=== PATIENT | female | born 1940 | race Two or more races ===

== ENCOUNTER 2019-03-06 23:01 | Inpatient (IN) | payer SELFPAY ==
[~2019-03-06] VITALS: Ht 152.4 cm; Wt 51.0 kg
[2019-03-06 23:15] VITALS: BP 175/79
--- NOTE | 2019-03-06 23:15 | NUR ---
ED Nurse Note: Patient was BIBA from home due to hypoglycemia. Per patient's grandchild this is second episod for today. Patient's BS upon arrival was 160. AAOP x4, BP 187/85, ER MD aware no new orders.
[2019-03-06 23:42] LABS: APPEARANCE,URINE CLEAR; BASOPHILS % (AUTO) 0.8 % (0.0-2.0); BILIRUBIN, URINE NEGATIVE (NEGATIVE); COLOR,URINE PALE YELLOW; EOSINOPHILS % (AUTO) 2.1 % (0.0-3.0); GLUCOSE, URINE (UA) NEGATIVE (NEGATIVE); HEMATOCRIT 28.3 % (37.0-47.0); KETONES,URINE NEGATIVE (NEGATIVE); LEUKOCYTE ESTERASE ,URINE 1+ (NEGATIVE); LYMPHOCYTES % (AUTO) 17.9 % (20.0-45.0); MEAN CORPUSCULAR VOLUME 93 FL (80-99); MONOCYTES % (AUTO) 5.6 % (1.0-10.0); NEUTROPHILS % (AUTO) 73.6 % (45.0-75.0); NITRITE,URINE NEGATIVE (NEGATIVE); PH,URINE 5 (4.5-8.0); PLATELET COUNT 315 K/UL (150-450); PROTEIN,URINE 4+ (NEGATIVE); RED BLOOD COUNT 3.06 M/UL (4.20-5.40); RED CELL DISTRIBUTION WIDTH 12.2 % (11.6-14.8); UROBILINOGEN,URINE NORMAL MG/DL (0.0-1.0); WHITE BLOOD COUNT 7.2 K/UL (4.8-10.8)
--- NOTE | 2019-03-06 23:43 | Emergency Room Report ---
History of Present Illness General Chief Complaint: General Complaint Source: Patient Present Illness HPI This is an 79-year-old female who has a history of diabetes and high blood pressure. She presents with altered mental status and low blood sugar. She is visiting from [facility]. She has been taking metformin 850 mg also Januvia. Her blood sugar was running low yesterday. Her daughter stopped Januvia around 5 PM yesterday. Yesterday she was unresponsive when she woke up. She came around after glucose was given. Her blood sugars been running today. This evening she became lethargic and unresponsive. Blood glucose was running in the 30s. #1 was called when he did not improve. Initial blood glucose was 48. They gave her an amp of D50 and it rebounded to 300. She became responsive. No trauma. No fever chills but no other meds other than blood pressure medication. Not on insulin. Allergies: Coded Allergies: No Known Allergies (Unverified , 03/06/19) Patient History Past Medical History: see triage record, old chart reviewed, DM, HTN Past Surgical History: other Pertinent Family History: none Social History: Denies: smoking Last Menstrual Period: NA Now: No : 8 Para: 8 Immunizations: other Reviewed Nursing Documentation: PMH: Agreed; PSxH: Agreed Nursing Documentation-PMH Hx Hypertension: Yes Hx Diabetes: Yes Review of Systems Eye: Denies: eye pain, blurred vision ENT: Denies: ear pain, nose congestion, throat swelling Respiratory: Denies: cough, shortness of breath Cardiovascular: Denies: chest pain, palpitations Gastrointestinal: Denies: abdominal pain, diarrhea, nausea, vomiting Musculoskeletal: Denies: back pain, joint pain Skin: Denies: rash Neurological: Denies: headache, numbness Endocrine: Denies: increased thirst, increased urine Hematologic/Lymphatic: Denies: easy bruising All Other Systems: negative except mentioned in HPI Physical Exam Vital Signs Date Time Temp Pulse Resp B/P (MAP) Pulse Ox O2 Delivery O2 Flow Rate FiO2 03/06/19 22:55 98.4 97 16 175/79 (111) 96 Room Air vitals with high blood pressure Sp02 EP Interpretation: reviewed, normal General Appearance: well appearing, no apparent distress, alert Head: normocephalic, atraumatic Eyes: bilateral eye PERRL, bilateral eye EOMI ENT: hearing grossly normal, normal pharynx Neck: full range of motion, supple, no meningismus Respiratory: chest non-tender, lungs clear, normal breath sounds Cardiovascular #1: regular rate, rhythm, no murmur Gastrointestinal: normal bowel sounds, non tender, no mass, no organomegaly, no bruit, non-distended Musculoskeletal: back normal, normal range of motion, other - BKA Neurologic: alert, oriented x3 Psychiatric: mood/affect normal Skin: warm/dry Medical Decision Making Diagnostic Impression: Primary Impression: Hypoglycemia Additional Impressions: ARF (acute renal failure) Qualified Codes: N17.9 - Acute kidney failure, unspecified Anemia, chronic disease CRF (chronic renal failure) Qualified Codes: N18.5 - Chronic kidney disease, stage 5 Hypertension Qualified Codes: I10 - Essential (primary) hypertension ER Course Patient presents with altered mental status secondary to hypoglycemia. No evidence of CVA or bleed. Her hypoglycemia is probably worsened because of acute renal failure. According to family, patient has no doctor in [facility]. She is been going to the ER and buying medications from the pharmacy. There were discussion of possible peritoneal dialysis but follow-up patient was told she does not need dialysis. Acute on chronic renal failure and hypoglycemia, will admit for further work- up. I discussed the case with Dr. Gage and Bonnie for admission. Last Vital Signs Date Time Temp Pulse Resp B/P (MAP) Pulse Ox O2 Delivery O2 Flow Rate FiO2 03/06/19 22:55 98.4 97 16 175/79 (111) 96 Room Air Status: improved Disposition: ADMITTED INPATIENT Condition: Serious Referrals: NOT CHOSEN IPA/,REFERRING (PCP) Jorge Patel MD Mar 06, 2019 23:43
[2019-03-06 23:51] LABS: ANION GAP 19 mmol/L (5-15); BLOOD UREA NITROGEN 87 mg/dL (7-18); CALCIUM 8.1 MG/DL (8.5-10.1); CARBON DIOXIDE 16 MMOL/L (21-32); CHLORIDE 106 MMOL/L (98-107); CREATININE 8.2 MG/DL (0.55-1.30); SODIUM 141 MMOL/L (136-145)
[2019-03-07] VITALS (7 sets, daily range): BP systolic 152–185; BP diastolic 79–96
--- NOTE | 2019-03-07 01:40 | NUR ---
NURSE NOTES: Telephone report taken from ER, DESI Sheppard. Inpatient under Dr. Kenzie Gage
--- NOTE | 2019-03-07 02:00 | NUR ---
NURSE NOTES: Patient brought up to floor with ER transport via gurney, transferred to room bed. Speaks only Afghan. Patient is awake and alert, A&Ox4. No signs of distress on room air. No complaints of pain. IV site c/d/i and patent. Skin is loose, but intact. Patient is Lt above the knee leg amputee, needs assistance with transfers. BP is still elevated (182/96) despite administration of BP meds in ER at 0122. Contacting MD for new patient orders, awaiting return call.
--- NOTE | 2019-03-07 03:37 | NUR ---
ED Nurse Note: Patient was admited to [facility] due to renal failure, and hypoglycemia. AAO x4, BP 175/85 ER MD aware, other VSS at this time. Patient was tranfered via [employer], with all belongings.
--- NOTE | 2019-03-07 06:53 | General Progress Note ---
Assessment/Plan Problem List: (1) ARF (acute renal failure) ICD Codes: N17.9 - Acute kidney failure, unspecified SNOMED: 08765570 Qualifiers: Qualified Codes: N17.9 - Acute kidney failure, unspecified (2) Hypoglycemia ICD Codes: E16.2 - Hypoglycemia, unspecified SNOMED: 272019530 (3) Hypertension ICD Codes: I10 - Essential (primary) hypertension SNOMED: 67443869 Qualifiers: Qualified Codes: I10 - Essential (primary) hypertension (4) CRF (chronic renal failure) ICD Codes: N18.9 - Chronic kidney disease, unspecified SNOMED: 23648997 Qualifiers: Qualified Codes: N18.5 - Chronic kidney disease, stage 5 (5) Anemia, chronic disease ICD Codes: D63.8 - Anemia in other chronic diseases classified elsewhere SNOMED: 827120799 Assessment/Plan: hypoglycemia due to Metformin and Januvia in the setting of renal failure - dextrose infusion - stop all oral diabetic medications - glucose monitoring - hypoglycemia protocol - check lactic acid level - nephrology will follow for renal failure Subjective Allergies: Coded Allergies: No Known Allergies (Unverified , 03/06/19) All Systems: reviewed and negative except above Subjective This is an 79-year-old female who has a history of diabetes and high blood pressure. She presents with altered mental status and low blood sugar. She is visiting from [facility]. She has been taking metformin 850 mg also Januvia. Her blood sugar was running low yesterday. Her daughter stopped Januvia around 5 PM yesterday. Yesterday she was unresponsive when she woke up. She came around after glucose was given. Her blood sugars been running today. This evening she became lethargic and unresponsive. Blood glucose was running in the 30s. #1 was called when he did not improve. Initial blood glucose was 48. They gave her an amp of D50 and it rebounded to 300. She became responsive. No trauma. No fever chills but no other meds other than blood pressure medication. Not on insulin. Objective Last 24 Hour Vital Signs Date Time Temp Pulse Resp B/P (MAP) Pulse Ox O2 Delivery O2 Flow Rate FiO2 03/07/19 04:00 98.1 100 17 180/90 (120) 98 03/07/19 02:42 Room Air 03/07/19 02:00 99.1 102 16 182/96 (124) 98 03/07/19 01:55 98.4 16 185/85 96 Room Air 03/07/19 01:55 98.4 16 185/85 96 Room Air 03/07/19 01:22 185/85 03/07/19 00:21 91 182/85 03/06/19 23:15 97 16 Room Air 03/06/19 23:15 98.4 16 175/79 96 Room Air 03/06/19 22:55 98.4 97 16 175/79 (111) 96 Room Air Intake and Output 03/06/19 03/07/19 18:59 06:59 Intake Total 240 ml Balance 240 ml Intake Oral 240 ml # Voids 1 Laboratory Tests 03/06/19 23:30: White Blood Count 7.2, Red Blood Count 3.06L, Hemoglobin 10.0L, Hematocrit 28.3L , Mean Corpuscular Volume 93, Mean Corpuscular Hemoglobin 32.8H, Mean Corpuscular Hemoglobin Concent 35.4, Red Cell Distribution Width 12.2, Platelet Count 315, Mean Platelet Volume 5.7L, Neutrophils (%) (Auto) 73.6, Lymphocytes ( %) (Auto) 17.9L, Monocytes (%) (Auto) 5.6, Eosinophils (%) (Auto) 2.1, Basophils (%) (Auto) 0.8, Urine Color Pale yellow, Urine Appearance Clear, Urine pH 5, Urine Specific [place] 1.015, Urine Protein 4+H, Urine Glucose (UA) Negative, Urine Ketones Negative, Urine Blood 2+H, Urine Nitrite Negative, Urine Bilirubin Negative, Urine Urobilinogen Normal, Urine Leukocyte Esterase 1+ H, Urine RBC 2-4H, Urine WBC 2-4, Urine Squamous Epithelial Cells ModerateH, Urine Bacteria Few, Sodium Level 141, Potassium Level 5.0, Chloride Level 106, Carbon Dioxide Level 16L, Anion Gap 19H, Blood Urea Nitrogen 87H, Creatinine 8.2H, Estimat Glomerular Filtration Rate , Glucose Level 132H, Calcium Level 8.1L Height (Feet): 5 Height (Inches): 0.00 Weight (Pounds): 115 General Appearance: no apparent distress Neck: normal alignment Cardiovascular: normal rate Respiratory/Chest: lungs clear Abdomen: normal bowel sounds Pelvis: normal external exam Jayjay Clemons MD Mar 07, 2019 06:53
--- NOTE | 2019-03-07 06:53 | NUR ---
NURSE NOTES: No orders placed for patient as of current time. I contacted MD at patient arrival ([id number]). Followed up at 0630. Awaiting response and orders.
[2019-03-07] MEDS ORDERED: D5NS 1,000 ML IV SCH (07:00)
[2019-03-07] MEDS ORDERED: Morphine Sulfate 2mg/ml Inj(IV/IM USE ONLY) IVP PRN (07:30)
[2019-03-07] MEDS ORDERED: Zolpidem 5mg tab ORAL PRN (07:30)
[2019-03-07] MEDS ORDERED: Miralax 17gm pkt ORAL PRN (07:30)
[2019-03-07] MEDS ORDERED: LORazepam Inj 2mg/ml 1ml IV PRN (07:30)
--- NOTE | 2019-03-07 07:36 | NUR ---
HAND-OFF: Report given to DESI Marques. Patient is awake and VS stable.
--- NOTE | 2019-03-07 07:38 | NUR ---
NURSE NOTES: Daughter is at bedside. Pt awake Danish speaker. Pt admitted for hypoglycemia . Able to respond to questions appropriately. Call light is in reach.
[2019-03-07 08:11] LABS: CREATINE KINASE 36 U/L (26-308)
[2019-03-07] MEDS: Heparin 5000 units/ml inj SUBQ SCH ×2 (09:27→20:22)
[2019-03-07 10:15] LABS: BASOPHILS % (AUTO) 0.8 % (0.0-2.0); EOSINOPHILS % (AUTO) 2.6 % (0.0-3.0); HEMATOCRIT 26.3 % (37.0-47.0); HEMOGLOBIN 9.3 G/DL (12.0-16.0); LYMPHOCYTES % (AUTO) 18.6 % (20.0-45.0); MEAN CORPUSCULAR VOLUME 94 FL (80-99); PLATELET COUNT 313 K/UL (150-450); RED CELL DISTRIBUTION WIDTH 12.3 % (11.6-14.8)
[2019-03-07 10:36] LABS: APPEARANCE,URINE CLEAR; BILIRUBIN, URINE NEGATIVE (NEGATIVE); COLOR,URINE PALE YELLOW; GLUCOSE, URINE (UA) NEGATIVE (NEGATIVE); KETONES,URINE NEGATIVE (NEGATIVE); LEUKOCYTE ESTERASE ,URINE NEGATIVE (NEGATIVE); NITRITE,URINE NEGATIVE (NEGATIVE); PH,URINE 5 (4.5-8.0); PROTEIN,URINE 4+ (NEGATIVE); UROBILINOGEN,URINE NORMAL MG/DL (0.0-1.0)
--- NOTE | 2019-03-07 10:38 | Diagnostic Imaging Report ---
Indication: Altered mental status Technique: Contiguous 5 mm thick transaxial imaging of the head obtained in a Siemens Sensation [address] scanner. Soft tissue and bone windows generated. Automatic Exposure Control was utilized. Total Dose length Product (DLP): 1326.[address] Dose Index Volume (CTDIvol): 70.38 mGy Comparison: none Findings: There is moderate prominence of the ventricles, basal cisterns, and cerebral sulci consistent with atrophy. Moderate, nonspecific, white matter hypoattenuation is noted throughout the brain consistent with chronic small vessel disease. There is no midline shift, edema, acute hemorrhage, mass effect, or abnormal extra-axial fluid collections. Bones are unremarkable. Impression: No acute intracranial bleed, mass effect or edema. Moderate atrophy of the brain. Evidence of chronic small vessel disease involving white matter tracts. The CT scanner at [facility] is accredited by the [employer] and the scans are performed using dose optimization techniques as appropriate to a performed exam including Automatic Exposure control.
[2019-03-07 10:55] LABS: ALANINE AMINOTRANSFERASE 12 U/L (12-78); ALBUMIN 2.6 G/DL (3.4-5.0); ALBUMIN/GLOBULIN RATIO 0.6 (1.0-2.7); ALKALINE PHOSPHATASE 81 U/L (46-116); ANION GAP 19 mmol/L (5-15); ASPARTATE AMINO TRANSFERASE 16 U/L (15-37); BILIRUBIN,TOTAL 0.3 MG/DL (0.2-1.0); BLOOD UREA NITROGEN 85 mg/dL (7-18); CALCIUM 7.7 MG/DL (8.5-10.1); CARBON DIOXIDE 14 MMOL/L (21-32); CHLORIDE 108 MMOL/L (98-107); CHOLESTEROL 178 MG/DL (< 200); CREATININE 8.2 MG/DL (0.55-1.30); GAMMA GLUTAMYL TRANSPEPTIDASE 17 U/L (5-85); HDL CHOLESTEROL 78 MG/DL (40-60); PHOSPHORUS 6.2 MG/DL (2.5-4.9); POTASSIUM 5.4 MMOL/L (3.5-5.1); SODIUM 141 MMOL/L (136-145); TRIGLYCERIDES 124 MG/DL (30-150)
[2019-03-07] MEDS ORDERED: NovoLOG Insulin Flexpen SUBQ SCH ×2 (11:30)
--- NOTE | 2019-03-07 11:33 | NUR ---
CASE MANAGEMENT:REVIEW 79 YR OLD FEMALE FROM HOME TO ER CC: HYPOGLYCEMIC WITH BS 48 SI: ACUTE RENAL FAILURE. HYPOGLYCEMIA 98.5 97 16 182/85 96% ON RA H/H-10.0/28.3 GLUCOSE+132-->56 BUN+87 CR+8.2 IS: IV D50 IV HYDRALAZINE IVF@75/HR NORVASC PO CT HEAD : TO MED/SURG STATUS 3 [facility]
--- NOTE | 2019-03-07 12:08 | Diagnostic Imaging Report ---
Indication:Elevated Bun and Creatinine. Technique: Grayscale and duplex Doppler imaging of the kidneys performed. Comparison: None Findings: The size, contour, and echogenicity of both kidneys are within normal limits. There is no hydronephrosis. The IVC and urinary bladder are unremarkable. Right kidney 10.8 cm in length. Left kidney 10.4 cm in length. IMPRESSION: Negative exam
--- NOTE | 2019-03-07 12:17 | Cardiac Electrophysiology PN ---
Subjective Subjective [id number] Objective Last 24 Hour Vital Signs Date Time Temp Pulse Resp B/P (MAP) Pulse Ox O2 Delivery O2 Flow Rate FiO2 03/07/19 09:00 Room Air 03/07/19 08:00 98.2 95 17 170/85 (113) 03/07/19 04:00 98.1 100 17 180/90 (120) 98 03/07/19 02:42 Room Air 03/07/19 02:00 99.1 102 16 182/96 (124) 98 03/07/19 01:55 98.4 16 185/85 96 Room Air 03/07/19 01:55 98.4 16 185/85 96 Room Air 03/07/19 01:22 185/85 03/07/19 00:21 91 182/85 03/06/19 23:15 97 16 Room Air 03/06/19 23:15 98.4 16 175/79 96 Room Air 03/06/19 22:55 98.4 97 16 175/79 (111) 96 Room Air Intake and Output 03/06/19 03/07/19 19:00 07:00 Intake Total 240 ml Balance 240 ml Intake Oral 240 ml # Voids 1 Laboratory Tests Test 03/06/19 23:30 03/07/19 07:31 03/07/19 07:37 03/07/19 10:23 White Blood Count 7.2 K/UL (4.8-10.8) 8.0 K/UL (4.8-10.8) Red Blood Count 3.06 M/UL (4.20-5.40) L 2.80 M/UL (4.20-5.40) L Hemoglobin 10.0 G/DL (12.0-16.0) L 9.3 G/DL (12.0-16.0) L Hematocrit 28.3 % (37.0-47.0) L 26.3 % (37.0-47.0) L Mean Corpuscular Volume 93 FL (80-99) 94 FL (80-99) Mean Corpuscular Hemoglobin 32.8 PG (27.0-31.0) H 33.2 PG (27.0-31.0) H Mean Corpuscular Hemoglobin Concent 35.4 G/DL (32.0-36.0) 35.3 G/DL (32.0-36.0) Red Cell Distribution Width 12.2 % (11.6-14.8) 12.3 % (11.6-14.8) Platelet Count 315 K/UL (150-450) 313 K/UL (150-450) Mean Platelet Volume 5.7 FL (6.5-10.1) L 5.4 FL (6.5-10.1) L Neutrophils (%) (Auto) 73.6 % (45.0-75.0) 72.0 % (45.0-75.0) Lymphocytes (%) (Auto) 17.9 % (20.0-45.0) L 18.6 % (20.0-45.0) L Monocytes (%) (Auto) 5.6 % (1.0-10.0) 6.0 % (1.0-10.0) Eosinophils (%) (Auto) 2.1 % (0.0-3.0) 2.6 % (0.0-3.0) Basophils (%) (Auto) 0.8 % (0.0-2.0) 0.8 % (0.0-2.0) Urine Color Pale yellow Pale yellow Urine Appearance Clear Clear Urine pH 5 (4.5-8.0) 5 (4.5-8.0) Urine Specific [place] 1.015 (1.005-1.035) 1.010 (1.005-1.035) Urine Protein 4+ (NEGATIVE) H 4+ (NEGATIVE) H Urine Glucose (UA) Negative (NEGATIVE) Negative (NEGATIVE) Urine Ketones Negative (NEGATIVE) Negative (NEGATIVE) Urine Blood 2+ (NEGATIVE) H 2+ (NEGATIVE) H Urine Nitrite Negative (NEGATIVE) Negative (NEGATIVE) Urine Bilirubin Negative (NEGATIVE) Negative (NEGATIVE) Urine Urobilinogen Normal MG/DL (0.0-1.0) Normal MG/DL (0.0-1.0) Urine Leukocyte Esterase 1+ (NEGATIVE) H Negative (NEGATIVE) Urine RBC 2-4 /HPF (0 - 2) H 2-4 /HPF (0 - 2) H Urine WBC 2-4 /HPF (0 - 2) 0-2 /HPF (0 - 2) Urine Squamous Epithelial Cells Moderate /LPF (NONE/OCC) H Occasional /LPF Urine Bacteria Few /HPF (NONE) Few /HPF (NONE) Sodium Level 141 MMOL/L (136-145) 141 MMOL/L (136-145) Potassium Level 5.0 MMOL/L (3.5-5.1) 5.4 MMOL/L (3.5-5.1) H Chloride Level 106 MMOL/L (98-107) 108 MMOL/L (98-107) H Carbon Dioxide Level 16 MMOL/L (21-32) L 14 MMOL/L (21-32) L Anion Gap 19 mmol/L (5-15) H 19 mmol/L (5-15) H Blood Urea Nitrogen 87 mg/dL (7-18) H 85 mg/dL (7-18) H Creatinine 8.2 MG/DL (0.55-1.30) H 8.2 MG/DL (0.55-1.30) H Estimat Glomerular Filtration Rate mL/min (>60) mL/min (>60) Glucose Level 132 MG/DL (74-106) H 56 MG/DL (74-106) L Calcium Level 8.1 MG/DL (8.5-10.1) L 7.7 MG/DL (8.5-10.1) L Hemoglobin A1c 5.7 % (4.3-6.0) Uric Acid 6.4 MG/DL (2.6-7.2) Phosphorus Level 6.2 MG/DL (2.5-4.9) H Magnesium Level 1.2 MG/DL (1.8-2.4) L Total Bilirubin 0.3 MG/DL (0.2-1.0) Gamma Glutamyl Transpeptidase 17 U/L (5-85) Aspartate Amino Transf (AST/SGOT) 16 U/L (15-37) Alanine Aminotransferase (ALT/SGPT) 12 U/L (12-78) Alkaline Phosphatase 81 U/L (46-116) Total Creatine Kinase 36 U/L (26-308) C-Reactive Protein, Quantitative 1.5 mg/dL (0.00-0.90) H Pro-B-Type Natriuretic Peptide > 19233 pg/mL (0-125) H Total Protein 7.1 G/DL (6.4-8.2) Albumin 2.6 G/DL (3.4-5.0) L Globulin 4.5 g/dL Albumin/Globulin Ratio 0.6 (1.0-2.7) L Triglycerides Level 124 MG/DL (30-150) Cholesterol Level 178 MG/DL (< 200) LDL Cholesterol 83 mg/dL (<100) HDL Cholesterol 78 MG/DL (40-60) H Cholesterol/HDL Ratio 2.3 (3.3-4.4) L Thyroid Stimulating Hormone (TSH) 1.519 uiU/mL (0.358-3.740) Urine Amorphous Sediment Moderate /LPF (NONE) H Urine Random Sodium 57 mmol/L (20-110) Ryan Cash MD Mar 07, 2019 12:17
[2019-03-07] MEDS ORDERED: Sodium Polystyrene Sulfonate 15gm Powder ORAL SCH (13:30)
--- NOTE | 2019-03-07 14:20 | Consultation ---
History of Present Illness General Date patient seen: Mar 07, 2019 Chief Complaint: General Complaint Present Illness HPI 79-year-old female with a history of diabetes and high blood pressure. She presents with altered mental status and low blood sugar. Her blood glucose was running in the 30s. Paramedics gave her an amp of D50 and it rebounded to 300. She became responsive. No trauma. Allergies: Coded Allergies: No Known Allergies (Unverified , 03/06/19) Patient History Healthcare decision maker Resuscitation status Full Code Advanced Directive on File Past Medical/Surgical History Past Medical/Surgical History: (1) Diabetes mellitus (2) Hypertension Physical Exam General Appearance: WD/WN, no apparent distress Lines, tubes and drains: peripheral HEENT: normocephalic, atraumatic Neck: non-tender, normal alignment Respiratory/Chest: chest wall non-tender, normal breath sounds Breasts: no masses Cardiovascular/Chest: normal peripheral pulses, normal rate Abdomen: normal bowel sounds Genitourinary/Rectal: normal genital exam Last 24 Hour Vital Signs Date Time Temp Pulse Resp B/P (MAP) Pulse Ox O2 Delivery O2 Flow Rate FiO2 03/07/19 12:00 98.8 88 19 162/79 (106) 03/07/19 09:00 Room Air 03/07/19 08:00 98.2 95 17 170/85 (113) 03/07/19 04:00 98.1 100 17 180/90 (120) 98 03/07/19 02:42 Room Air 03/07/19 02:00 99.1 102 16 182/96 (124) 98 03/07/19 01:55 98.4 16 185/85 96 Room Air 03/07/19 01:55 98.4 16 185/85 96 Room Air 03/07/19 01:22 185/85 03/07/19 00:21 91 182/85 03/06/19 23:15 97 16 Room Air 03/06/19 23:15 98.4 16 175/79 96 Room Air 03/06/19 22:55 98.4 97 16 175/79 (111) 96 Room Air Intake and Output 03/06/19 03/07/19 19:00 07:00 Intake Total 240 ml Balance 240 ml Intake Oral 240 ml # Voids 1 Laboratory Tests Test 03/06/19 23:30 03/07/19 07:31 03/07/19 07:37 03/07/19 10:23 White Blood Count 7.2 K/UL (4.8-10.8) 8.0 K/UL (4.8-10.8) Red Blood Count 3.06 M/UL (4.20-5.40) L 2.80 M/UL (4.20-5.40) L Hemoglobin 10.0 G/DL (12.0-16.0) L 9.3 G/DL (12.0-16.0) L Hematocrit 28.3 % (37.0-47.0) L 26.3 % (37.0-47.0) L Mean Corpuscular Volume 93 FL (80-99) 94 FL (80-99) Mean Corpuscular Hemoglobin 32.8 PG (27.0-31.0) H 33.2 PG (27.0-31.0) H Mean Corpuscular Hemoglobin Concent 35.4 G/DL (32.0-36.0) 35.3 G/DL (32.0-36.0) Red Cell Distribution Width 12.2 % (11.6-14.8) 12.3 % (11.6-14.8) Platelet Count 315 K/UL (150-450) 313 K/UL (150-450) Mean Platelet Volume 5.7 FL (6.5-10.1) L 5.4 FL (6.5-10.1) L Neutrophils (%) (Auto) 73.6 % (45.0-75.0) 72.0 % (45.0-75.0) Lymphocytes (%) (Auto) 17.9 % (20.0-45.0) L 18.6 % (20.0-45.0) L Monocytes (%) (Auto) 5.6 % (1.0-10.0) 6.0 % (1.0-10.0) Eosinophils (%) (Auto) 2.1 % (0.0-3.0) 2.6 % (0.0-3.0) Basophils (%) (Auto) 0.8 % (0.0-2.0) 0.8 % (0.0-2.0) Urine Color Pale yellow Pale yellow Urine Appearance Clear Clear Urine pH 5 (4.5-8.0) 5 (4.5-8.0) Urine Specific [place] 1.015 (1.005-1.035) 1.010 (1.005-1.035) Urine Protein 4+ (NEGATIVE) H 4+ (NEGATIVE) H Urine Glucose (UA) Negative (NEGATIVE) Negative (NEGATIVE) Urine Ketones Negative (NEGATIVE) Negative (NEGATIVE) Urine Blood 2+ (NEGATIVE) H 2+ (NEGATIVE) H Urine Nitrite Negative (NEGATIVE) Negative (NEGATIVE) Urine Bilirubin Negative (NEGATIVE) Negative (NEGATIVE) Urine Urobilinogen Normal MG/DL (0.0-1.0) Normal MG/DL (0.0-1.0) Urine Leukocyte Esterase 1+ (NEGATIVE) H Negative (NEGATIVE) Urine RBC 2-4 /HPF (0 - 2) H 2-4 /HPF (0 - 2) H Urine WBC 2-4 /HPF (0 - 2) 0-2 /HPF (0 - 2) Urine Squamous Epithelial Cells Moderate /LPF (NONE/OCC) H Occasional /LPF Urine Bacteria Few /HPF (NONE) Few /HPF (NONE) Sodium Level 141 MMOL/L (136-145) 141 MMOL/L (136-145) Potassium Level 5.0 MMOL/L (3.5-5.1) 5.4 MMOL/L (3.5-5.1) H Chloride Level 106 MMOL/L (98-107) 108 MMOL/L (98-107) H Carbon Dioxide Level 16 MMOL/L (21-32) L 14 MMOL/L (21-32) L Anion Gap 19 mmol/L (5-15) H 19 mmol/L (5-15) H Blood Urea Nitrogen 87 mg/dL (7-18) H 85 mg/dL (7-18) H Creatinine 8.2 MG/DL (0.55-1.30) H 8.2 MG/DL (0.55-1.30) H Estimat Glomerular Filtration Rate mL/min (>60) mL/min (>60) Glucose Level 132 MG/DL (74-106) H 56 MG/DL (74-106) L Calcium Level 8.1 MG/DL (8.5-10.1) L 7.7 MG/DL (8.5-10.1) L Hemoglobin A1c 5.7 % (4.3-6.0) Uric Acid 6.4 MG/DL (2.6-7.2) Phosphorus Level 6.2 MG/DL (2.5-4.9) H Magnesium Level 1.2 MG/DL (1.8-2.4) L Total Bilirubin 0.3 MG/DL (0.2-1.0) Gamma Glutamyl Transpeptidase 17 U/L (5-85) Aspartate Amino Transf (AST/SGOT) 16 U/L (15-37) Alanine Aminotransferase (ALT/SGPT) 12 U/L (12-78) Alkaline Phosphatase 81 U/L (46-116) Total Creatine Kinase 36 U/L (26-308) C-Reactive Protein, Quantitative 1.5 mg/dL (0.00-0.90) H Pro-B-Type Natriuretic Peptide > 73799 pg/mL (0-125) H Total Protein 7.1 G/DL (6.4-8.2) Albumin 2.6 G/DL (3.4-5.0) L Globulin 4.5 g/dL Albumin/Globulin Ratio 0.6 (1.0-2.7) L Triglycerides Level 124 MG/DL (30-150) Cholesterol Level 178 MG/DL (< 200) LDL Cholesterol 83 mg/dL (<100) HDL Cholesterol 78 MG/DL (40-60) H Cholesterol/HDL Ratio 2.3 (3.3-4.4) L Thyroid Stimulating Hormone (TSH) 1.519 uiU/mL (0.358-3.740) Urine Amorphous Sediment Moderate /LPF (NONE) H Urine Random Sodium 57 mmol/L (20-110) Height (Feet): 5 Height (Inches): 0.00 Weight (Pounds): 115 Medications Current Medications Medications (Trade) Dose Ordered Sig/[place] Route PRN Reason Start Time Stop Time Status Last Admin Dose Admin Acetaminophen (Tylenol) 650 mg Q4H PRN ORAL fever 03/07/19 07:30 04/06/19 07:29 Amlodipine Besylate (Norvasc) 10 mg DAILY ORAL 03/08/19 09:00 04/07/19 08:59 Clonidine HCl (Catapres Tab) 0.1 mg Q4H PRN ORAL sbp>170mmHg 03/07/19 12:30 04/06/19 12:29 Dextrose (Dextrose 50%) 25 ml Q30M PRN IV Hypoglycemia 03/07/19 07:00 04/06/19 06:59 Dextrose (Dextrose 50%) 50 ml Q30M PRN IV Hypoglycemia 03/07/19 07:00 04/06/19 06:59 Dextrose/Sodium Chloride 1,000 ml @ 50 mls/hr Q20H IV 03/07/19 13:45 04/06/19 13:44 Docusate Sodium (Colace) 100 mg THREE TIMES A DAY ORAL 03/07/19 18:00 04/06/19 17:59 Heparin Sodium (Porcine) (Heparin 5000 units/ml) 5,000 units EVERY 12 HOURS SUBQ 03/07/19 09:00 04/06/19 08:59 03/07/19 09:27 Lorazepam (Ativan 2mg/ml 1ml) 0.5 mg Q4H PRN IV For Anxiety 03/07/19 07:30 03/14/19 07:29 Magnesium Sulfate 100 ml @ 100 mls/hr Q1H IVPB 03/07/19 13:30 03/07/19 15:29 Ondansetron HCl (Zofran) 4 mg Q6H PRN IVP Nausea & Vomiting 03/07/19 07:30 04/06/19 07:29 Pantoprazole (Protonix) 40 mg BID ORAL 03/07/19 18:00 04/06/19 13:29 Polyethylene Glycol (Miralax) 17 gm HSPRN PRN ORAL Constipation 03/07/19 07:30 04/06/19 07:29 Sevelamer Carbonate (Renvela) 1,600 mg THREE TIMES A DAY ORAL 03/07/19 18:00 04/06/19 17:59 Sodium Polystyrene Sulfonate (Kayexalate) 45 gm ONCE ORAL 03/07/19 13:30 03/07/19 14:30 Sodium Citrate (Bicitra) 30 ml EVERY 6 HOURS ORAL 03/07/19 18:00 04/06/19 17:59 Zolpidem Tartrate (Ambien) 5 mg HSPRN PRN ORAL Insomnia 03/07/19 07:30 03/14/19 07:29 Assessment/Plan Problem List: (1) Acute metabolic encephalopathy due to hypoglycemia ICD Codes: G93.41 - Metabolic encephalopathy; E16.2 - Hypoglycemia, unspecified SNOMED: 85432487, 351550638 (2) Acute on chronic renal insufficiency ICD Codes: N28.9 - Disorder of kidney and ureter, unspecified; N18.9 - Chronic kidney disease, unspecified SNOMED: 475530993, 526049894 (3) Hypoglycemia ICD Codes: E16.2 - Hypoglycemia, unspecified SNOMED: 010881839 (4) Anemia, chronic disease ICD Codes: D63.8 - Anemia in other chronic diseases classified elsewhere SNOMED: 200450885 (5) Diabetes mellitus ICD Codes: E11.9 - Type 2 diabetes mellitus without complications SNOMED: 16483127 (6) Hypertension ICD Codes: I10 - Essential (primary) hypertension SNOMED: 41828169 Qualifiers: Qualified Codes: I10 - Essential (primary) hypertension Assessment/Plan: hold metformin iv fluids sliding scale diabetic diet renal studies Misty Nicole MD Mar 07, 2019 14:20
--- NOTE | 2019-03-07 14:56 | Consultation ---
History of Present Illness General Date patient seen: Mar 07, 2019 Chief Complaint: General Complaint Present Illness HPI 79 y/o F with hx of Dm2, HTN, CKD presented to ED on 03/06 with altered mental stautus, low blood sugar. BG as low as in the 30s; she was unresponsive and became responsive after amp of D50 No trauma, f/c. Allergies: Coded Allergies: No Known Allergies (Unverified , 03/06/19) Patient History Healthcare decision maker Resuscitation status Full Code Advanced Directive on File Patient History Narrative Pmhx: as above Shx: reviewed Fhx: non contributory Review of Systems All Other Systems: negative except mentioned in HPI Physical Exam Physical Exam Narrative General Appearance: WD/WN, no apparent distress Lines, tubes and drains: peripheral HEENT: normocephalic, atraumatic Neck: non-tender, normal alignment Respiratory/Chest: chest wall non-tender, normal breath sounds Breasts: no masses Cardiovascular/Chest: normal peripheral pulses, normal rate Abdomen: normal bowel sounds Genitourinary/Rectal: normal genital exam Last 24 Hour Vital Signs Date Time Temp Pulse Resp B/P (MAP) Pulse Ox O2 Delivery O2 Flow Rate FiO2 03/07/19 12:00 98.8 88 19 162/79 (106) 03/07/19 09:00 Room Air 03/07/19 08:00 98.2 95 17 170/85 (113) 03/07/19 04:00 98.1 100 17 180/90 (120) 98 03/07/19 02:42 Room Air 03/07/19 02:00 99.1 102 16 182/96 (124) 98 03/07/19 01:55 98.4 16 185/85 96 Room Air 03/07/19 01:55 98.4 16 185/85 96 Room Air 03/07/19 01:22 185/85 03/07/19 00:21 91 182/85 03/06/19 23:15 97 16 Room Air 03/06/19 23:15 98.4 16 175/79 96 Room Air 03/06/19 22:55 98.4 97 16 175/79 (111) 96 Room Air Intake and Output 03/06/19 03/07/19 19:00 07:00 Intake Total 240 ml Balance 240 ml Intake Oral 240 ml # Voids 1 Laboratory Tests Test 03/06/19 23:30 03/07/19 07:31 03/07/19 07:37 03/07/19 10:23 White Blood Count 7.2 K/UL (4.8-10.8) 8.0 K/UL (4.8-10.8) Red Blood Count 3.06 M/UL (4.20-5.40) L 2.80 M/UL (4.20-5.40) L Hemoglobin 10.0 G/DL (12.0-16.0) L 9.3 G/DL (12.0-16.0) L Hematocrit 28.3 % (37.0-47.0) L 26.3 % (37.0-47.0) L Mean Corpuscular Volume 93 FL (80-99) 94 FL (80-99) Mean Corpuscular Hemoglobin 32.8 PG (27.0-31.0) H 33.2 PG (27.0-31.0) H Mean Corpuscular Hemoglobin Concent 35.4 G/DL (32.0-36.0) 35.3 G/DL (32.0-36.0) Red Cell Distribution Width 12.2 % (11.6-14.8) 12.3 % (11.6-14.8) Platelet Count 315 K/UL (150-450) 313 K/UL (150-450) Mean Platelet Volume 5.7 FL (6.5-10.1) L 5.4 FL (6.5-10.1) L Neutrophils (%) (Auto) 73.6 % (45.0-75.0) 72.0 % (45.0-75.0) Lymphocytes (%) (Auto) 17.9 % (20.0-45.0) L 18.6 % (20.0-45.0) L Monocytes (%) (Auto) 5.6 % (1.0-10.0) 6.0 % (1.0-10.0) Eosinophils (%) (Auto) 2.1 % (0.0-3.0) 2.6 % (0.0-3.0) Basophils (%) (Auto) 0.8 % (0.0-2.0) 0.8 % (0.0-2.0) Urine Color Pale yellow Pale yellow Urine Appearance Clear Clear Urine pH 5 (4.5-8.0) 5 (4.5-8.0) Urine Specific [place] 1.015 (1.005-1.035) 1.010 (1.005-1.035) Urine Protein 4+ (NEGATIVE) H 4+ (NEGATIVE) H Urine Glucose (UA) Negative (NEGATIVE) Negative (NEGATIVE) Urine Ketones Negative (NEGATIVE) Negative (NEGATIVE) Urine Blood 2+ (NEGATIVE) H 2+ (NEGATIVE) H Urine Nitrite Negative (NEGATIVE) Negative (NEGATIVE) Urine Bilirubin Negative (NEGATIVE) Negative (NEGATIVE) Urine Urobilinogen Normal MG/DL (0.0-1.0) Normal MG/DL (0.0-1.0) Urine Leukocyte Esterase 1+ (NEGATIVE) H Negative (NEGATIVE) Urine RBC 2-4 /HPF (0 - 2) H 2-4 /HPF (0 - 2) H Urine WBC 2-4 /HPF (0 - 2) 0-2 /HPF (0 - 2) Urine Squamous Epithelial Cells Moderate /LPF (NONE/OCC) H Occasional /LPF Urine Bacteria Few /HPF (NONE) Few /HPF (NONE) Sodium Level 141 MMOL/L (136-145) 141 MMOL/L (136-145) Potassium Level 5.0 MMOL/L (3.5-5.1) 5.4 MMOL/L (3.5-5.1) H Chloride Level 106 MMOL/L (98-107) 108 MMOL/L (98-107) H Carbon Dioxide Level 16 MMOL/L (21-32) L 14 MMOL/L (21-32) L Anion Gap 19 mmol/L (5-15) H 19 mmol/L (5-15) H Blood Urea Nitrogen 87 mg/dL (7-18) H 85 mg/dL (7-18) H Creatinine 8.2 MG/DL (0.55-1.30) H 8.2 MG/DL (0.55-1.30) H Estimat Glomerular Filtration Rate mL/min (>60) mL/min (>60) Glucose Level 132 MG/DL (74-106) H 56 MG/DL (74-106) L Calcium Level 8.1 MG/DL (8.5-10.1) L 7.7 MG/DL (8.5-10.1) L Hemoglobin A1c 5.7 % (4.3-6.0) Uric Acid 6.4 MG/DL (2.6-7.2) Phosphorus Level 6.2 MG/DL (2.5-4.9) H Magnesium Level 1.2 MG/DL (1.8-2.4) L Total Bilirubin 0.3 MG/DL (0.2-1.0) Gamma Glutamyl Transpeptidase 17 U/L (5-85) Aspartate Amino Transf (AST/SGOT) 16 U/L (15-37) Alanine Aminotransferase (ALT/SGPT) 12 U/L (12-78) Alkaline Phosphatase 81 U/L (46-116) Total Creatine Kinase 36 U/L (26-308) C-Reactive Protein, Quantitative 1.5 mg/dL (0.00-0.90) H Pro-B-Type Natriuretic Peptide > 73582 pg/mL (0-125) H Total Protein 7.1 G/DL (6.4-8.2) Albumin 2.6 G/DL (3.4-5.0) L Globulin 4.5 g/dL Albumin/Globulin Ratio 0.6 (1.0-2.7) L Triglycerides Level 124 MG/DL (30-150) Cholesterol Level 178 MG/DL (< 200) LDL Cholesterol 83 mg/dL (<100) HDL Cholesterol 78 MG/DL (40-60) H Cholesterol/HDL Ratio 2.3 (3.3-4.4) L Thyroid Stimulating Hormone (TSH) 1.519 uiU/mL (0.358-3.740) Urine Amorphous Sediment Moderate /LPF (NONE) H Urine Random Sodium 57 mmol/L (20-110) Height (Feet): 5 Height (Inches): 0.00 Weight (Pounds): 115 Medications Current Medications Medications (Trade) Dose Ordered Sig/Sebas Route PRN Reason Start Time Stop Time Status Last Admin Dose Admin Acetaminophen (Tylenol) 650 mg Q4H PRN ORAL fever 03/07/19 07:30 04/06/19 07:29 Amlodipine Besylate (Norvasc) 10 mg DAILY ORAL 03/08/19 09:00 04/07/19 08:59 Clonidine HCl (Catapres Tab) 0.1 mg Q4H PRN ORAL sbp>170mmHg 03/07/19 12:30 04/06/19 12:29 Dextrose (Dextrose 50%) 25 ml Q30M PRN IV Hypoglycemia 03/07/19 07:00 04/06/19 06:59 Dextrose (Dextrose 50%) 50 ml Q30M PRN IV Hypoglycemia 03/07/19 07:00 04/06/19 06:59 Dextrose/Sodium Chloride 1,000 ml @ 50 mls/hr Q20H IV 03/07/19 13:45 04/06/19 13:44 Docusate Sodium (Colace) 100 mg THREE TIMES A DAY ORAL 03/07/19 18:00 04/06/19 17:59 Heparin Sodium (Porcine) (Heparin 5000 units/ml) 5,000 units EVERY 12 HOURS SUBQ 03/07/19 09:00 04/06/19 08:59 03/07/19 09:27 Lorazepam (Ativan 2mg/ml 1ml) 0.5 mg Q4H PRN IV For Anxiety 03/07/19 07:30 03/14/19 07:29 Magnesium Sulfate 100 ml @ 100 mls/hr Q1H IVPB 03/07/19 13:30 03/07/19 15:29 03/07/19 14:25 Ondansetron HCl (Zofran) 4 mg Q6H PRN IVP Nausea & Vomiting 03/07/19 07:30 04/06/19 07:29 Pantoprazole (Protonix) 40 mg BID ORAL 03/07/19 18:00 04/06/19 13:29 Polyethylene Glycol (Miralax) 17 gm HSPRN PRN ORAL Constipation 03/07/19 07:30 04/06/19 07:29 Sevelamer Carbonate (Renvela) 1,600 mg THREE TIMES A DAY ORAL 03/07/19 18:00 04/06/19 17:59 Sodium Citrate (Bicitra) 30 ml EVERY 6 HOURS ORAL 03/07/19 18:00 04/06/19 17:59 Zolpidem Tartrate (Ambien) 5 mg HSPRN PRN ORAL Insomnia 03/07/19 07:30 03/14/19 07:29 Assessment/Plan Assessment/Plan: Abx: None Assessment: Acute encephalopathy 2ry to hypoglycemia- No evidence of infectious process at present -CT head: No acute intracranial bleed, mass effect or edema. Moderate atrophy of the brain. Evidence of chronic small vessel disease involving white matter tracts. Afebrile No leukocytosis ARIE on CKD Dm2 HTN Plan: -Continue to monitor off abx -f/u cx -Monitor CBC/CMP, temperatures -Pat sarmiento Thank you for this consultation. Will continue to follow along with you. Discussed with DESI. Giovana Corral M.D. Mar 07, 2019 14:56
--- NOTE | 2019-03-07 15:05 | Consultation ---
Consult Note Consult Note asked to eval for renal failure his is an 79-year-old female who has a history of diabetes and high blood pressure. She presents with altered mental status and low blood sugar. She is visiting from [facility]. She has been taking metformin 850 mg also Januvia. Her blood sugar was running low yesterday. Her daughter stopped Januvia around 5 PM yesterday. Yesterday she was unresponsive when she woke up. She came around after glucose was given. Her blood sugars been running today. This evening she became lethargic and unresponsive. Blood glucose was running in the 30s. #1 was called when he did not improve. Initial blood glucose was 48. They gave her an amp of D50 and it rebounded to 300. She became responsive. No trauma. No fever chills but no other meds other than blood pressure medication. Not on insulin. No Known Allergies (Unverified , 03/06/19) : 8 Para: 8 Hx Hypertension: Yes Hx Diabetes: Yes excamined data reviewed . Assessment/Plan Renal failure- likely Chronic with superimposed Acute - Acute metabolic encephalopathy due to hypoglycemia -Hypoglycemia -Anemia, chronic disease -Diabetes mellitus -Hypertension Renal Diet Kayexelate as needed Adjust BP meds Urine studies Phos binders 2D echo Kidney CARMEN monitor renal parameters avoid nephrotoxics per orders Lloyd Jimenez MD Mar 07, 2019 15:05
--- NOTE | 2019-03-07 15:14 | NUR ---
NURSE NOTES: pt has family member at the bedside. Refused lunch informed of risk of low blood sugar 2 to refusal of meals. FC in place and patent. Urine specimen taken to given to lab. Pt seen by Dr Palmer new orders given. Dr Jimenez seen pt. Pt breathing room air. Is cooperating with medication regimen. Pt referred to Charla for information on supplental insurance
[2019-03-07] MEDS: HydrALAZINE 25mg tab ORAL SCH ×3 (15:59→23:52)
[2019-03-07] MEDS: D5NS 1,000 ML IV SCH (16:03)
--- NOTE | 2019-03-07 16:30 | Consultation ---
DATE OF CONSULTATION: 03/07/2019 CARDIOLOGY CONSULTATION CONSULTING PHYSICIAN: Ryan Cash M.D. REFERRING PHYSICIAN: Perez Gage D.O. REASON FOR CONSULTATION: Accelerated hypertension. HISTORY OF PRESENT ILLNESS: The patient is an 79-year-old lady with history of hypertension and diabetes, who was visiting [facility], was taking metformin 850 mg with Januvia. The patient was felt to be unresponsive and blood sugar was checked by daughter, it was 30s. The paramedics were called and received an amp of D50, rebounded to 300, and became responsive. Her blood pressure in the ER was as high as 182/96 and Cardiology consultation was obtained for further blood pressure management. REVIEW OF SYSTEMS: Negative other than what is mentioned in the history of present illness. PAST MEDICAL HISTORY: As mentioned above. FAMILY HISTORY: Noncontributory. SOCIAL HISTORY: She lives with family. Does not smoke or drink alcohol. PHYSICAL EXAMINATION: VITAL SIGNS: Blood pressure is 117/85, pulse 95, respirations 18, temperature 98.2. HEAD AND NECK: Showed no JVD. LUNGS: Clear. CARDIOVASCULAR: Regular S1 and S2 with no gallop or murmur. ABDOMEN: Soft. EXTREMITIES: No pitting edema. LABORATORY DATA: Her labs show white count 8, hemoglobin 9.7, hematocrit 26.3, platelet count 313. Sodium 141, potassium is 5.4, BUN of 85, creatinine of 8.2, and glucose of 56. BNP is more than 35,000. ASSESSMENT AND PLAN: 1. Accelerated hypertension. The patient has renal failure with BUN of 85, creatinine of 8.2. Avoid NICO inhibitor and angiotensin-receptor blockers. I will start the patient on Norvasc 5 mg b.i.d. and add p.r.n. clonidine to her medical regimen. 2. Hypoglycemia and uncontrolled diabetes. Further evaluation by Dr. Clemons. 3. Renal failure. Nephrology consultation is pending. 4. Hyperkalemia due to renal failure. Thank you very much for allowing me to participate in the care of this patient. Please do not hesitate to contact for any questions regarding my evaluation. Ryan Cash M.D. DR: THO JOB#: [id number] CC:
--- NOTE | 2019-03-07 17:00 | History and Physical Report ---
DATE OF ADMISSION: 03/07/2019 CONSULTANTS: 1. Jayjay Clemons M.D. 2. Misty Nicole M.D. 3. Lloyd Jimenez M.D. CHIEF COMPLAINT: Hypoglycemia, diabetes, acute renal failure, weakness, and lethargy. BRIEF HISTORY: This is an 79-year-old female, visiting from [facility] apparently had episode where he has become lethargic. Sugar was tested at 36. The patient came to [facility], diagnosed with the above, and admitted to medical floor for further treatment. Currently, calm in bed, feeling little better, no complaint. REVIEW OF SYSTEMS: No chest pain. No shortness of breath. No nausea, vomiting, or diarrhea. PAST MEDICAL HISTORY: Includes diabetes, hypertension, and acute renal failure. PAST SURGICAL HISTORY: Hip replacement and left leg AKA. MEDICATIONS: Include insulin, heparin, morphine, polyethylene glycol, zolpidem, and amlodipine. ALLERGIES: Denies. SOCIAL HISTORY: No smoking. No alcohol. No intravenous drug abuse. FAMILY HISTORY: Noncontributory. PHYSICAL EXAMINATION: GENERAL: Calm in bed, oriented x1, in no acute distress. VITAL SIGNS: Temperature is 98 degrees, pulse 100, respirations 17, and blood pressure 180/90. CARDIOVASCULAR: No murmurs. LUNGS: Distant and clear. ABDOMEN: Bowel sounds positive. Nontender. Nondistended. EXTREMITIES: No cyanosis, clubbing, or edema. NEUROLOGIC: The patient moves all extremities, slightly weak. LABORATORY AND DIAGNOSTIC DATA: Labs, at this time, show hemoglobin and hematocrit 9.3 and 26. Otherwise, CBC is normal. BMP shows potassium 5.4, chloride 108, BUN and creatinine are 85 and 8.2 . BNP is greater than 3500. Albumin 2.6. Urinalysis, 2+ blood, otherwise normal. A 1+ leukocyte esterase. ASSESSMENT: 1. Diabetes. 2. Hypoglycemia. 3. Urinary tract infection. 4. Acute renal failure. 5. Hypertension. 6. Anemia. 7. Malnutrition. PLAN: 1. PT and dietary evaluation. 2. CBC and BMP in the morning. 3. Resume home medications. 4. Blood sugar control. 5. Antibiotics per Infectious Disease. 6. Blood pressure control. 7. Cardiology followup. Perez Gage D.O. DR: CAR JOB#: [id number] CC:
[2019-03-07] MEDS: Docusate 100mg cap ORAL SCH (18:12)
[2019-03-07] MEDS: Sodium Citrate 30ml ORAL SCH ×2 (18:12→23:51)
--- NOTE | 2019-03-07 19:48 | NUR ---
NURSE NOTES: RECEIVED PATIENT RESTING IN BED, NO COMPLAINTS OF PAIN AT THIS TIME. DAUGHTER AT BEDSIDE. FALL PRECAUTIONS IN PLACE: CALL LIGHT, BESIDE TABLE AND COMMODE WITHIN REACH, BED IN LOW POSITION AND BED ALARM ON. 24 HR URINE COLLECTION STARTED AT 1920 03/07/19. PLAN OF CARE REVIEWED.
--- NOTE | 2019-03-07 19:50 | NUR ---
NURSE NOTES: Pt in stable condition repositioned sleeping at this time. Daughter is at bedside. Urine specimen taken to lab.
[2019-03-08] VITALS: BP 161/98
[2019-03-08 04:00] VITALS: BP 158/74
[2019-03-08] MEDS: HydrALAZINE 25mg tab ORAL SCH (05:38)
[2019-03-08] MEDS: Sodium Citrate 30ml ORAL SCH ×2 (05:38→12:05)
[2019-03-08 06:27] LABS: BASOPHILS % (AUTO) 1.1 % (0.0-2.0); HEMATOCRIT 24.7 % (37.0-47.0); HEMOGLOBIN 8.4 G/DL (12.0-16.0); LYMPHOCYTES % (AUTO) 27.6 % (20.0-45.0); MEAN CORPUSCULAR VOLUME 95 FL (80-99); MONOCYTES % (AUTO) 6.8 % (1.0-10.0); NEUTROPHILS % (AUTO) 60.5 % (45.0-75.0); PLATELET COUNT 281 K/UL (150-450); RED BLOOD COUNT 2.62 M/UL (4.20-5.40); RED CELL DISTRIBUTION WIDTH 12.2 % (11.6-14.8); WHITE BLOOD COUNT 6.4 K/UL (4.8-10.8)
[2019-03-08 06:32] LABS: ALANINE AMINOTRANSFERASE 7 U/L (12-78); ALBUMIN 2.2 G/DL (3.4-5.0); ALBUMIN/GLOBULIN RATIO 0.6 (1.0-2.7); ALKALINE PHOSPHATASE 64 U/L (46-116); ANION GAP 15 mmol/L (5-15); ASPARTATE AMINO TRANSFERASE 16 U/L (15-37); BILIRUBIN,TOTAL 0.3 MG/DL (0.2-1.0); BLOOD UREA NITROGEN 77 mg/dL (7-18); CARBON DIOXIDE 17 MMOL/L (21-32); CHLORIDE 106 MMOL/L (98-107); CREATININE 7.9 MG/DL (0.55-1.30); POTASSIUM 4.2 MMOL/L (3.5-5.1); SODIUM 138 MMOL/L (136-145)
--- NOTE | 2019-03-08 06:42 | General Progress Note ---
Assessment/Plan Problem List: (1) ARF (acute renal failure) ICD Codes: N17.9 - Acute kidney failure, unspecified SNOMED: 17194679 Qualifiers: Qualified Codes: N17.9 - Acute kidney failure, unspecified (2) Hypoglycemia ICD Codes: E16.2 - Hypoglycemia, unspecified SNOMED: 653026270 (3) Hypertension ICD Codes: I10 - Essential (primary) hypertension SNOMED: 33577387 Qualifiers: Qualified Codes: I10 - Essential (primary) hypertension (4) CRF (chronic renal failure) ICD Codes: N18.9 - Chronic kidney disease, unspecified SNOMED: 57009219 Qualifiers: Qualified Codes: N18.5 - Chronic kidney disease, stage 5 (5) Anemia, chronic disease ICD Codes: D63.8 - Anemia in other chronic diseases classified elsewhere SNOMED: 549873616 Assessment/Plan: hypoglycemia due to Metformin and Januvia in the setting of renal failure - continue dextrose infusion - glucose monitoring - hypoglycemia protocol Subjective Allergies: Coded Allergies: No Known Allergies (Unverified , 03/06/19) All Systems: reviewed and negative except above Subjective events noted Item Value Date Time Bedside Blood Glucose 75 mg/dl 03/08/19 0619 Bedside Blood Glucose 105 mg/dl 03/07/19 2135 Bedside Blood Glucose 127 mg/dl H 03/07/19 1630 Bedside Blood Glucose 95 mg/dl 03/07/19 1130 Objective Last 24 Hour Vital Signs Date Time Temp Pulse Resp B/P (MAP) Pulse Ox O2 Delivery O2 Flow Rate FiO2 03/08/19 05:38 158/74 03/08/19 04:00 98.3 77 17 158/74 (102) 98 03/08/19 00:00 98.4 92 19 161/98 (119) 96 03/07/19 23:52 161/98 03/07/19 21:00 Room Air 03/07/19 20:20 185/94 03/07/19 20:00 98.5 96 20 185/94 (124) 97 03/07/19 17:43 130/69 03/07/19 16:00 98.9 92 18 152/81 (104) 97 03/07/19 15:59 158/78 03/07/19 12:00 98.8 88 19 162/79 (106) 03/07/19 09:00 Room Air 03/07/19 08:00 98.2 95 17 170/85 (113) Intake and Output 03/07/19 03/08/19 18:59 06:59 Intake Total 655 ml 840 ml Output Total 600 ml Balance 655 ml 240 ml Intake Oral 480 ml 240 ml IV Total 175 ml 600 ml Output Urine Total 600 ml # Voids 2 1 # Bowel Movements 1 2 Laboratory Tests 03/07/19 07:31: White Blood Count 8.0, Red Blood Count 2.80L, Hemoglobin 9.3L, Hematocrit 26.3L , Mean Corpuscular Volume 94, Mean Corpuscular Hemoglobin 33.2H, Mean Corpuscular Hemoglobin Concent 35.3, Red Cell Distribution Width 12.3, Platelet Count 313, Mean Platelet Volume 5.4L, Neutrophils (%) (Auto) 72.0, Lymphocytes ( %) (Auto) 18.6L, Monocytes (%) (Auto) 6.0, Eosinophils (%) (Auto) 2.6, Basophils (%) (Auto) 0.8 03/07/19 07:37: Sodium Level 141, Potassium Level 5.4H, Chloride Level 108H, Carbon Dioxide Level 14L, Anion Gap 19H, Blood Urea Nitrogen 85H, Creatinine 8.2H, Estimat Glomerular Filtration Rate , Glucose Level 56L, Hemoglobin A1c 5.7, Uric Acid 6.4, Calcium Level 7.7L, Phosphorus Level 6.2H, Magnesium Level 1.2L, Total Bilirubin 0.3, Gamma Glutamyl Transpeptidase 17, Aspartate Amino Transf (AST/ SGOT) 16, Alanine Aminotransferase (ALT/SGPT) 12, Alkaline Phosphatase 81, Total Creatine Kinase 36, C-Reactive Protein, Quantitative 1.5H, Pro-B-Type Natriuretic Peptide > 53285D, Total Protein 7.1, Albumin 2.6L, Globulin 4.5, Albumin/Globulin Ratio 0.6L, Triglycerides Level 124, Cholesterol Level 178, LDL Cholesterol 83, HDL Cholesterol 78H, Cholesterol/HDL Ratio 2.3L, Thyroid Stimulating Hormone (TSH) 1.519 03/07/19 10:23: Urine Color Pale yellow, Urine Appearance Clear, Urine pH 5, Urine Specific [place] 1.010, Urine Protein 4+H, Urine Glucose (UA) Negative, Urine Ketones Negative, Urine Blood 2+H, Urine Nitrite Negative, Urine Bilirubin Negative, Urine Urobilinogen Normal, Urine Leukocyte Esterase Negative, Urine RBC 2-4H, Urine WBC 0-2, Urine Squamous Epithelial Cells Occasional, Urine Amorphous Sediment ModerateH, Urine Bacteria Few, Urine Random Sodium 57 03/07/19 18:45: Urine Random Sodium 38, Urine Eosinophils None seen 03/08/19 04:45: White Blood Count 6.4, Red Blood Count 2.62L, Hemoglobin 8.4L, Hematocrit 24.7L , Mean Corpuscular Volume 95, Mean Corpuscular Hemoglobin 32.1H, Mean Corpuscular Hemoglobin Concent 33.9, Red Cell Distribution Width 12.2, Platelet Count 281, Mean Platelet Volume 5.8L, Neutrophils (%) (Auto) 60.5, Lymphocytes ( %) (Auto) 27.6, Monocytes (%) (Auto) 6.8, Eosinophils (%) (Auto) 4.0H, Basophils (%) (Auto) 1.1, Sodium Level 138, Potassium Level 4.2, Chloride Level 106, Carbon Dioxide Level 17L, Anion Gap 15, Blood Urea Nitrogen 77H, Creatinine 7.9H, Estimat Glomerular Filtration Rate , Glucose Level 74, Uric Acid [Pending], Calcium Level 7.0L, Phosphorus Level [Pending], Magnesium Level [Pending], Iron Level [Pending], Unsaturated Iron Binding [Pending], Ferritin [ Pending], Total Bilirubin 0.3, Aspartate Amino Transf (AST/SGOT) 16, Alanine Aminotransferase (ALT/SGPT) 7L, Alkaline Phosphatase 64, Total Protein 5.9L, Albumin 2.2L, Globulin 3.7, Albumin/Globulin Ratio 0.6L, Vitamin B12 Level [ Pending], Folate [Pending] 03/08/19 05:30: Urine Eosinophils [Pending] Height (Feet): 5 Height (Inches): 0.00 Weight (Pounds): 112 General Appearance: no apparent distress Neck: normal alignment Cardiovascular: normal rate Respiratory/Chest: decreased breath sounds Abdomen: normal bowel sounds Pelvis: normal external exam Objective Current Medications Medications (Trade) Dose Ordered Sig/Sebas Route PRN Reason Start Time Stop Time Status Last Admin Dose Admin Acetaminophen (Tylenol) 650 mg Q4H PRN ORAL fever 03/07/19 07:30 04/06/19 07:29 Amlodipine Besylate (Norvasc) 10 mg DAILY ORAL 03/08/19 09:00 04/07/19 08:59 Clonidine HCl (Catapres Tab) 0.1 mg Q4H PRN ORAL sbp>170mmHg 03/07/19 12:30 04/06/19 12:29 03/07/19 20:20 Dextrose (Dextrose 50%) 25 ml Q30M PRN IV Hypoglycemia 03/07/19 07:00 04/06/19 06:59 Dextrose (Dextrose 50%) 50 ml Q30M PRN IV Hypoglycemia 03/07/19 07:00 04/06/19 06:59 Dextrose/Sodium Chloride 1,000 ml @ 50 mls/hr Q20H IV 03/07/19 13:45 04/06/19 13:44 03/07/19 16:03 Docusate Sodium (Colace) 100 mg THREE TIMES A DAY ORAL 03/07/19 18:00 04/06/19 17:59 03/07/19 18:12 Heparin Sodium (Porcine) (Heparin 5000 units/ml) 5,000 units EVERY 12 HOURS SUBQ 03/07/19 09:00 04/06/19 08:59 03/07/19 20:22 Hydralazine HCl (Apresoline) 25 mg Q6HR ORAL 03/07/19 15:00 04/06/19 14:59 03/08/19 05:38 Lorazepam (Ativan 2mg/ml 1ml) 0.5 mg Q4H PRN IV For Anxiety 03/07/19 07:30 03/14/19 07:29 Ondansetron HCl (Zofran) 4 mg Q6H PRN IVP Nausea & Vomiting 03/07/19 07:30 04/06/19 07:29 Pantoprazole (Protonix) 40 mg BID ORAL 03/07/19 18:00 04/06/19 13:29 03/07/19 18:11 Polyethylene Glycol (Miralax) 17 gm HSPRN PRN ORAL Constipation 03/07/19 07:30 04/06/19 07:29 Sevelamer Carbonate (Renvela) 1,600 mg THREE TIMES A DAY ORAL 03/07/19 18:00 04/06/19 17:59 03/07/19 18:12 Sodium Citrate (Bicitra) 30 ml EVERY 6 HOURS ORAL 03/07/19 18:00 7/25/19 17:59 03/08/19 05:38 Zolpidem Tartrate (Ambien) 5 mg HSPRN PRN ORAL Insomnia 03/07/19 07:30 03/14/19 07:29 Jayjay Clemons MD Mar 08, 2019 06:42
[2019-03-08 06:49] LABS: PHOSPHORUS 6.2 MG/DL (2.5-4.9)
[2019-03-08 07:01] LABS: % IRON SATURATION 33 % (15-50); IRON 60 ug/dL (50-175); TOTAL IRON BINDING CAPACITY 183 ug/dL (250-450)
--- NOTE | 2019-03-08 07:47 | NUR ---
HAND-OFF: Report given to Kenzie HEIN RN. PATIENT EATING BREAKFAST, NO SIGNS OF DISTRESS NOTED. DAUGHTER AT BEDSIDE.
[2019-03-08 08:00] VITALS: BP 160/73
--- NOTE | 2019-03-08 08:00 | NUR ---
NURSE NOTES: Received report from Jody WEEKS. Patient is awake alert and oriented x4, no acute distress noted, family at bedside. Reporting no pain at this time. IVF running per order, IV intact and asymptomatic. Updated patient and family on plan of care for the day. Fall precautions maintained. Side rails upx3, bed low and locked, call light in reach. Will continue to monitor.
--- NOTE | 2019-03-08 08:03 | NUR ---
RADIOLOGY: PCXR completed 0800 hrs. NF
[2019-03-08] MEDS: Docusate 100mg cap ORAL SCH (09:32)
[2019-03-08] MEDS: Heparin 5000 units/ml inj SUBQ SCH (09:33)
[2019-03-08] MEDS: D5NS 1,000 ML IV SCH (10:12)
--- NOTE | 2019-03-08 10:25 | Nephrology Progress Note ---
Assessment/Plan Problem List: (1) CRF (chronic renal failure) (2) Hypertension (3) Anemia, chronic disease Assessment Renal failure- likely Chronic with superimposed Acute - Acute metabolic encephalopathy due to hypoglycemia -Hypoglycemia -Anemia, chronic disease -Diabetes mellitus -Hypertension Plan Renal Diet Kayexelate as needed Adjust BP meds Urine studies Phos binders 2D echo noted Kidney CARMEN noted monitor renal parameters avoid nephrotoxics per orders no urgent intervention is needed Subjective ROS Limited/Unobtainable: No Objective Objective Last 24 Hour Vital Signs Date Time Temp Pulse Resp B/P (MAP) Pulse Ox O2 Delivery O2 Flow Rate FiO2 03/08/19 09:32 83 160/73 03/08/19 08:00 98.2 83 17 160/73 (102) 98 03/08/19 05:38 158/74 03/08/19 04:00 98.3 77 17 158/74 (102) 98 03/08/19 00:00 98.4 92 19 161/98 (119) 96 03/07/19 23:52 161/98 03/07/19 21:00 Room Air 03/07/19 20:20 185/94 03/07/19 20:00 98.5 96 20 185/94 (124) 97 03/07/19 17:43 130/69 03/07/19 16:00 98.9 92 18 152/81 (104) 97 03/07/19 15:59 158/78 03/07/19 12:00 98.8 88 19 162/79 (106) Intake and Output 03/07/19 03/08/19 18:59 06:59 Intake Total 655 ml 840 ml Output Total 600 ml Balance 655 ml 240 ml Intake Oral 480 ml 240 ml IV Total 175 ml 600 ml Output Urine Total 600 ml # Voids 2 1 # Bowel Movements 1 2 Current Medications Medications (Trade) Dose Ordered Sig/[place] Route PRN Reason Start Time Stop Time Status Last Admin Dose Admin Acetaminophen (Tylenol) 650 mg Q4H PRN ORAL fever 03/07/19 07:30 04/06/19 07:29 Amlodipine Besylate (Norvasc) 10 mg DAILY ORAL 03/08/19 09:00 04/07/19 08:59 03/08/19 09:32 Clonidine HCl (Catapres Tab) 0.1 mg Q4H PRN ORAL sbp>170mmHg 03/07/19 12:30 04/06/19 12:29 03/07/19 20:20 Cyanocobalamin (Vitamin B12) 1,000 mcg ONCE ONCE IM 03/08/19 10:30 03/08/19 10:31 UNV Dextrose (Dextrose 50%) 25 ml Q30M PRN IV Hypoglycemia 03/07/19 07:00 04/06/19 06:59 Dextrose (Dextrose 50%) 50 ml Q30M PRN IV Hypoglycemia 03/07/19 07:00 04/06/19 06:59 Dextrose/Sodium Chloride 1,000 ml @ 50 mls/hr Q20H IV 03/07/19 13:45 04/06/19 13:44 03/08/19 10:12 Docusate Sodium (Colace) 100 mg THREE TIMES A DAY ORAL 03/07/19 18:00 04/06/19 17:59 03/08/19 09:32 Heparin Sodium (Porcine) (Heparin 5000 units/ml) 5,000 units EVERY 12 HOURS SUBQ 03/07/19 09:00 04/06/19 08:59 03/08/19 09:33 Hydralazine HCl (Apresoline) 25 mg Q6HR ORAL 03/07/19 15:00 04/06/19 14:59 03/08/19 05:38 Lorazepam (Ativan 2mg/ml 1ml) 0.5 mg Q4H PRN IV For Anxiety 03/07/19 07:30 03/14/19 07:29 Ondansetron HCl (Zofran) 4 mg Q6H PRN IVP Nausea & Vomiting 03/07/19 07:30 04/06/19 07:29 Pantoprazole (Protonix) 40 mg BID ORAL 03/07/19 18:00 04/06/19 13:29 03/08/19 09:32 Polyethylene Glycol (Miralax) 17 gm HSPRN PRN ORAL Constipation 03/07/19 07:30 04/06/19 07:29 Sevelamer Carbonate (Renvela) 1,600 mg THREE TIMES A DAY ORAL 03/07/19 18:00 04/06/19 17:59 03/08/19 09:32 Sodium Citrate (Bicitra) 30 ml EVERY 6 HOURS ORAL 03/07/19 18:00 04/06/19 17:59 03/08/19 05:38 Zolpidem Tartrate (Ambien) 5 mg HSPRN PRN ORAL Insomnia 03/07/19 07:30 03/14/19 07:29 Laboratory Tests 03/07/19 18:45: Urine Eosinophils None seen, Urine Random Sodium 38 03/08/19 04:45: White Blood Count 6.4, Red Blood Count 2.62L, Hemoglobin 8.4L, Hematocrit 24.7L , Mean Corpuscular Volume 95, Mean Corpuscular Hemoglobin 32.1H, Mean Corpuscular Hemoglobin Concent 33.9, Red Cell Distribution Width 12.2, Platelet Count 281, Mean Platelet Volume 5.8L, Neutrophils (%) (Auto) 60.5, Lymphocytes ( %) (Auto) 27.6, Monocytes (%) (Auto) 6.8, Eosinophils (%) (Auto) 4.0H, Basophils (%) (Auto) 1.1, Sodium Level 138, Potassium Level 4.2, Chloride Level 106, Carbon Dioxide Level 17L, Anion Gap 15, Blood Urea Nitrogen 77H, Creatinine 7.9H, Estimat Glomerular Filtration Rate , Glucose Level 74, Uric Acid 5.8, Calcium Level 7.0L, Phosphorus Level 6.2H, Magnesium Level 1.8, Iron Level 60, Total Iron Binding Capacity 183L, Percent Iron Saturation 33, Unsaturated Iron Binding 123, Ferritin 321, Total Bilirubin 0.3, Aspartate Amino Transf (AST/SGOT) 16, Alanine Aminotransferase (ALT/SGPT) 7L, Alkaline Phosphatase 64, Total Protein 5.9L, Albumin 2.2L, Globulin 3.7, Albumin/ Globulin Ratio 0.6L, Vitamin B12 Level 236, Folate 13.3 03/08/19 05:30: Urine Eosinophils None seen Height (Feet): 5 Height (Inches): 0.00 Weight (Pounds): 112 General Appearance: no apparent distress Cardiovascular: normal rate Respiratory/Chest: lungs clear Abdomen: soft Lloyd Jimenez MD Mar 08, 2019 10:25
[2019-03-08] MEDS ORDERED: Vitamin B12 1000mcg/ml Inj IM ONE (10:30)
--- NOTE | 2019-03-08 10:46 | NUR ---
CASE MANAGEMENT:REVIEW 03/08/19 SI: AC/CHR RENAL FAILURE. HYPOGLYCEMIA 98.2 83 17 160/73 98% ON RA H/H-8.4/24.7 BUN+77 CR+7.9 IS: IVF@50/HR EPOETIN SQ MWF HYDRALAZINE PO Q8HRS NORVASC PO QD BICITRA PO Q6HRS PROTONIX PO BID HEPARIN SQ Q12 : MED/SURG STATUS 3 [facility]: PATIENT IS VISITING FROM [facility]
--- NOTE | 2019-03-08 11:12 | NUR ---
NURSE NOTES: Received order from Dr. Nicole to discontinue argueta catheter now. MD aware that patient is still under 24 hour urine collection, MD ordered to discontinue 24 hour urine collection and that Dr. Jimenez is aware.
[2019-03-08] MEDS ORDERED: NORVASC10 MG ORAL (11:13)
[2019-03-08] MEDS ORDERED: BICITRA30 ML ORAL (11:13)
[2019-03-08] MEDS ORDERED: APRESOLINE50 MG ORAL (11:13)
[2019-03-08] MEDS ORDERED: PANTOPRAZOLE SO40 MG ORAL (11:13)
[2019-03-08] MEDS ORDERED: RENVELA800 MG ORAL (11:13)
--- NOTE | 2019-03-08 11:14 | NUR ---
P.T Note: P.T evaluation completed and tx initiated. Please refer to P.T evaluation for current functional status. Pt is alert, Ox 4 , pleasant and cooperative. Daughter present in the room for translation. Pt denied c/o pain but reports generalized weakness and mild dizziness. Vitals taken and were stable. Pt currently require MIN A x 1 for bed mobility , transfers and gait/ambulation with FWW. Skilled P.T service is warranted to improve her strength and endurance to increase her mobility independence and return to PLOF. Pt would benefit from home P.T at [place].
--- NOTE | 2019-03-08 11:50 | NUR ---
NURSE NOTES: Otero catheter removed per MD order. Patient tolerated well. Educated patient and family at bedside to notify RN when ready to void.
[2019-03-08 12:00] VITALS: BP 171/85
--- NOTE | 2019-03-08 12:30 | Diagnostic Imaging Report ---
Indication: Dyspnea Comparison: None A single view chest radiograph was obtained. Findings: Borderline cardiomegaly noted. The lungs are clear. Pulmonary vascularity is appropriate. The diaphragmatic contour is smooth and costophrenic angles are sharp. No pleural effusions are identified. The bones are osteopenic. Impression: No acute findings
--- NOTE | 2019-03-08 13:30 | Cardiac Electrophysiology PN ---
Assessment/Plan Assessment/Plan 1. Accelerated hypertension. The patient has renal failure with BUN of 85, creatinine of 8.2. Avoid NICO inhibitor and angiotensin-receptor blockers. On Norvasc 10 mg daily, Hydralazine 50 q8. EF 55% 2. Hypoglycemia and uncontrolled diabetes. Further evaluation by Dr. Clemons. 3. Renal failure. FU Dr Jimenez 4. Hyperkalemia due to renal failure. DW RN and family Subjective Subjective No CP or SOB. DC planning in progress Objective Last 24 Hour Vital Signs Date Time Temp Pulse Resp B/P (MAP) Pulse Ox O2 Delivery O2 Flow Rate FiO2 03/08/19 13:20 171/85 03/08/19 12:00 97.9 84 18 171/85 (113) 03/08/19 09:32 83 160/73 03/08/19 09:00 Room Air 03/08/19 08:00 98.2 83 17 160/73 (102) 98 03/08/19 05:38 158/74 03/08/19 04:00 98.3 77 17 158/74 (102) 98 03/08/19 00:00 98.4 92 19 161/98 (119) 96 03/07/19 23:52 161/98 03/07/19 21:00 Room Air 03/07/19 20:20 185/94 03/07/19 20:00 98.5 96 20 185/94 (124) 97 03/07/19 17:43 130/69 03/07/19 16:00 98.9 92 18 152/81 (104) 97 03/07/19 15:59 158/78 Intake and Output 03/07/19 03/08/19 19:00 07:00 Intake Total 705 ml 840 ml Output Total 600 ml Balance 705 ml 240 ml Intake Oral 480 ml 240 ml IV Total 225 ml 600 ml Output Urine Total 600 ml # Voids 2 1 # Bowel Movements 1 2 Laboratory Tests Test 03/07/19 18:45 03/08/19 04:45 03/08/19 05:30 Urine Eosinophils None seen (NONE SEEN) None seen (NONE SEEN) Urine Random Sodium 38 mmol/L (20-110) White Blood Count 6.4 K/UL (4.8-10.8) Red Blood Count 2.62 M/UL (4.20-5.40) L Hemoglobin 8.4 G/DL (12.0-16.0) L Hematocrit 24.7 % (37.0-47.0) L Mean Corpuscular Volume 95 FL (80-99) Mean Corpuscular Hemoglobin 32.1 PG (27.0-31.0) H Mean Corpuscular Hemoglobin Concent 33.9 G/DL (32.0-36.0) Red Cell Distribution Width 12.2 % (11.6-14.8) Platelet Count 281 K/UL (150-450) Mean Platelet Volume 5.8 FL (6.5-10.1) L Neutrophils (%) (Auto) 60.5 % (45.0-75.0) Lymphocytes (%) (Auto) 27.6 % (20.0-45.0) Monocytes (%) (Auto) 6.8 % (1.0-10.0) Eosinophils (%) (Auto) 4.0 % (0.0-3.0) H Basophils (%) (Auto) 1.1 % (0.0-2.0) Sodium Level 138 MMOL/L (136-145) Potassium Level 4.2 MMOL/L (3.5-5.1) Chloride Level 106 MMOL/L (98-107) Carbon Dioxide Level 17 MMOL/L (21-32) L Anion Gap 15 mmol/L (5-15) Blood Urea Nitrogen 77 mg/dL (7-18) H Creatinine 7.9 MG/DL (0.55-1.30) H Estimat Glomerular Filtration Rate mL/min (>60) Glucose Level 74 MG/DL (74-106) Uric Acid 5.8 MG/DL (2.6-7.2) Calcium Level 7.0 MG/DL (8.5-10.1) L Phosphorus Level 6.2 MG/DL (2.5-4.9) H Magnesium Level 1.8 MG/DL (1.8-2.4) Iron Level 60 ug/dL (50-175) Total Iron Binding Capacity 183 ug/dL (250-450) L Percent Iron Saturation 33 % (15-50) Unsaturated Iron Binding 123 ug/dL (112-346) Ferritin 321 NG/ML (8-388) Total Bilirubin 0.3 MG/DL (0.2-1.0) Aspartate Amino Transf (AST/SGOT) 16 U/L (15-37) Alanine Aminotransferase (ALT/SGPT) 7 U/L (12-78) L Alkaline Phosphatase 64 U/L (46-116) Total Protein 5.9 G/DL (6.4-8.2) L Albumin 2.2 G/DL (3.4-5.0) L Globulin 3.7 g/dL Albumin/Globulin Ratio 0.6 (1.0-2.7) L Vitamin B12 Level 236 PG/ML (193-986) Folate 13.3 NG/ML (8.6-58.9) Objective HEAD AND NECK: Showed no JVD. LUNGS: Clear. CARDIOVASCULAR: Regular S1 and S2 with no gallop or murmur. ABDOMEN: Soft. EXTREMITIES: No pitting edema. Ryan Cash MD Mar 08, 2019 13:30
[2019-03-08] MEDS ORDERED: HydrALAZINE 50mg tab ORAL SCH (14:00)
--- NOTE | 2019-03-08 14:33 | General Progress Note ---
Assessment/Plan Problem List: (1) ARF (acute renal failure) ICD Codes: N17.9 - Acute kidney failure, unspecified SNOMED: 66677283 Qualifiers: Qualified Codes: N17.9 - Acute kidney failure, unspecified (2) Hypertension ICD Codes: I10 - Essential (primary) hypertension SNOMED: 46886594 Qualifiers: Qualified Codes: I10 - Essential (primary) hypertension (3) Anemia, chronic disease ICD Codes: D63.8 - Anemia in other chronic diseases classified elsewhere SNOMED: 164426623 (4) Hypoglycemia ICD Codes: E16.2 - Hypoglycemia, unspecified SNOMED: 025582512 (5) Acute on chronic renal insufficiency ICD Codes: N28.9 - Disorder of kidney and ureter, unspecified; N18.9 - Chronic kidney disease, unspecified SNOMED: 059984320, 344613210 (6) Diabetes mellitus ICD Codes: E11.9 - Type 2 diabetes mellitus without complications SNOMED: 43016111 Status: stable, progressing Assessment/Plan: diet bs control dc plan Subjective Constitutional: Reports: weakness Allergies: Coded Allergies: No Known Allergies (Unverified , 03/06/19) All Systems: reviewed and negative except above Subjective sitting calm Objective Last 24 Hour Vital Signs Date Time Temp Pulse Resp B/P (MAP) Pulse Ox O2 Delivery O2 Flow Rate FiO2 03/08/19 13:20 171/85 03/08/19 12:00 97.9 84 18 171/85 (113) 03/08/19 09:32 83 160/73 03/08/19 09:00 Room Air 03/08/19 08:00 98.2 83 17 160/73 (102) 98 03/08/19 05:38 158/74 03/08/19 04:00 98.3 77 17 158/74 (102) 98 03/08/19 00:00 98.4 92 19 161/98 (119) 96 03/07/19 23:52 161/98 03/07/19 21:00 Room Air 03/07/19 20:20 185/94 03/07/19 20:00 98.5 96 20 185/94 (124) 97 03/07/19 17:43 130/69 03/07/19 16:00 98.9 92 18 152/81 (104) 97 03/07/19 15:59 158/78 Intake and Output 03/07/19 03/08/19 19:00 07:00 Intake Total 705 ml 840 ml Output Total 600 ml Balance 705 ml 240 ml Intake Oral 480 ml 240 ml IV Total 225 ml 600 ml Output Urine Total 600 ml # Voids 2 1 # Bowel Movements 1 2 Laboratory Tests 03/07/19 18:45: Urine Eosinophils None seen, Urine Random Sodium 38 03/08/19 04:45: White Blood Count 6.4, Red Blood Count 2.62L, Hemoglobin 8.4L, Hematocrit 24.7L , Mean Corpuscular Volume 95, Mean Corpuscular Hemoglobin 32.1H, Mean Corpuscular Hemoglobin Concent 33.9, Red Cell Distribution Width 12.2, Platelet Count 281, Mean Platelet Volume 5.8L, Neutrophils (%) (Auto) 60.5, Lymphocytes ( %) (Auto) 27.6, Monocytes (%) (Auto) 6.8, Eosinophils (%) (Auto) 4.0H, Basophils (%) (Auto) 1.1, Sodium Level 138, Potassium Level 4.2, Chloride Level 106, Carbon Dioxide Level 17L, Anion Gap 15, Blood Urea Nitrogen 77H, Creatinine 7.9H, Estimat Glomerular Filtration Rate , Glucose Level 74, Uric Acid 5.8, Calcium Level 7.0L, Phosphorus Level 6.2H, Magnesium Level 1.8, Iron Level 60, Total Iron Binding Capacity 183L, Percent Iron Saturation 33, Unsaturated Iron Binding 123, Ferritin 321, Total Bilirubin 0.3, Aspartate Amino Transf (AST/SGOT) 16, Alanine Aminotransferase (ALT/SGPT) 7L, Alkaline Phosphatase 64, Total Protein 5.9L, Albumin 2.2L, Globulin 3.7, Albumin/ Globulin Ratio 0.6L, Vitamin B12 Level 236, Folate 13.3 03/08/19 05:30: Urine Eosinophils None seen Height (Feet): 5 Height (Inches): 0.00 Weight (Pounds): 112 General Appearance: alert EENT: normal ENT inspection Neck: normal alignment Cardiovascular: normal peripheral pulses, normal rate, regular rhythm Respiratory/Chest: chest wall non-tender, lungs clear, normal breath sounds Abdomen: normal bowel sounds, non tender, soft Extremities: normal inspection Edema: no edema noted Arm (L), no edema noted Arm (R), no edema noted Leg (L), no edema noted Leg (R), no edema noted Pedal (L), no edema noted Pedal (R), no edema noted Generalized Neurologic: responsive, motor weakness Skin: normal pigmentation, warm/dry Perez Gage DO Mar 08, 2019 14:33
[2019-03-08 15:00] VITALS: BP 137/67
--- NOTE | 2019-03-08 15:00 | NUR ---
NURSE NOTES: Patient voided clear, yellow urine into bedside commode with no difficulty noted.
[2019-03-08] MEDS ORDERED: 1/2 NS 1000ml IV ONE (15:34)
--- NOTE | 2019-03-08 15:45 | NUR ---
NURSE NOTES: Patient discharged. No acute distress on discharge. Blood pressure within normal limits. Discharge instructions, eduction, and handouts provided to patient and her granddaughter/caregiver Mikki. Patient and her granddaughter report understanding of provided education. Instructed to follow up with primary care provider. Prescriptions from Dr. Nicole given to patient's granddaughter by . IV removed intact. All belongings with patient. Escorted off unit to private vehicle via wheelchair with RN.
--- NOTE | 2019-03-08 18:50 | Cardiology Report ---
APPROVED REPORT EXAM: Two-dimensional and M-mode echocardiogram with Doppler and color Doppler. INDICATION Congestive Heart Failure M-Mode DIMENSIONS IVSd1.0 (0.7-1.1cm)Left Atrium (MM)3.1 (1.6-4.0cm) LVDd5.0 (3.5-5.6cm)Aortic Root2.7 (2.0-3.7cm) PWd1.0 (0.7-1.1cm)Aortic Cusp Exc.1.5 (1.5-2.0cm) IVSs1.4 cm LVDs3.6 (2.5-4.0cm) PWs1.3 cm Normal left ventricular chamber size, systolic function and wall motion. Left ventricular ejection fraction estimated to be 55-60 %. Mild left ventricular hypertrophy by 2-D. No evidence of pericardial effusion. All other cardiac chamber sizes are within normal limits. Moderate focal aortic valve sclerosis with adequate cusp excursion. Thickened mitral valve leaflets with normal excursion. Mitral annulus and aortic root calcification. Pulmonic valve not well visualized. Normal tricuspid valve structure. IVC at normal size with physiologic collapse. A color flow and spectral Doppler study was performed and revealed: Mild to moderate mitral regurgitation. Mitral diastolic velocities suggest reduced left ventricular relaxation c/w mild LV diastolic dysfunction (Grade I). Trace to mild tricuspid regurgitation. Tricuspid systolic velocities suggests peak right ventricular systolic pressure of 35 mmHg, consistent with borderline mild pulmonary hypertension.
[2019-03-08] MEDS ORDERED: Epoetin Alfa-EPBX (NON ESRD)10,000 unit/ml vial SUBQ SCH (21:00)
--- NOTE | 2019-03-09 08:51 | Discharge Summary ---
Discharge Summary Discharge Summary _ DATE OF ADMISSION: 03/07/2019 DATE OF DISCHARGE: 03/08/2019 CONSULTANTS: Dr. Ryan Nicole BRIEF HOSPITAL COURSE: Patient is an 79-year-old female, who is visiting from [facility], apparently episode when she became lethargic. She has a history of diabetes mellitus and hypertension. Altered mental status and low sugar. She was taking metformin and Januvia. Blood glucose was running low, daughter stopped Januvia around 5 PM the day prior. She became lethargic during the evening and the next day became unresponsive. EMS was called. Glucose in the field was 48. IV line was established and patient was given D10. She was then transported to ED. On evaluation at ED, blood pressure was elevated to 175/79, pulse rate 97. Blood work did not show any leukocytosis, hemoglobin 10, hematocrit 28. BUN was elevated to 87 and creatinine 8.2. Glucose was 132. Head CT did not show any acute intracranial bleed, mass-effect or edema. There was evidence of chronic small vessel disease involving the white matter tracts and moderate atrophy of the brain. Renal ultrasound was negative. She was given hydralazine and amlodipine. She was then admitted admitted for evaluation of hypoglycemia, and hypertension. She was admitted to medical floor. Database Architect was consulted. Januvia and metformin were discontinued. She was given dextrose infusion. Blood slucose was monitored. Kidney function was monitored. Patient had acute metabolic encephalopathy due to hypoglycemia she was placed on renal diet. Patient was afebrile and there was no leukocytosis. She was observed off antibiotics. She was given hydralazine 50 mg every 8 and Norvasc 10 mg daily. Echocardiogram done showed EF 55%- 60%, mild to moderate mitral regurgitation, right ventricular systolic pressure 35 mmHg, consistent with borderline mild pulmonary hypertension. Urine eosinophils were negative. She had an episode of hyperkalemia, potassium 5.4. She was given Kayexalate. Anemia work-up showed sufficient iron and folate. Vitamin B12 was low normal. She was given vitamin B12 injection x 1. She was given Epogen. Blood glucose was stable. Blood pressure with better control. She was eventually discharged home. FINAL DIAGNOSES: Acute metabolic encephalopathy due to hypoglycemia Acute on chronic renal failure Anemia of chronic disease Diabetes mellitus Accelerated hypertension DISPOSITION: Patient was discharged home. DISCHARGE MEDICATIONS: Refer to Discharge Medication List. DISCHARGE INSTRUCTIONS: Follow-up in a week. I have been assigned to complete a discharge summary on this account, I was not involved with the patient's management.--AFTAB English Jacqueline Robles NP Mar 09, 2019 08:51
--- NOTE | 2019-03-10 12:16 | Cardiology Report ---
APPROVED REPORT EKG Measurement Heart [id number] VT [id number] Poor data quality, interpretation may be adversely affected Normal sinus rhythm Nonspecific T wave abnormality Prolonged QT Abnormal ECG
== END 2019-03-08 15:35 | disposition home or self-care (01) | DRG 637 ==
LOC: EDBD 23:01 → EMR 23:17 → 3E 03-07 00:22 → EDBEDREQ 03-07 01:12
DX: E11.649 Type 2 diabetes mellitus with hypoglycemia without coma (principal); G93.41 Metabolic encephalopathy; E46 Unspecified protein-calorie malnutrition; Z79.4 Long term (current) use of insulin; N17.9 Acute kidney failure, unspecified; E11.22 Type 2 diabetes mellitus with diabetic chronic kidney disease; I12.9 Hypertensive chronic kidney disease with stage 1 through stage 4 chronic kidney disease, or unspecified chronic kidney disease; N18.9 Chronic kidney disease, unspecified; Z96.649 Presence of unspecified artificial hip joint; Z89.612 Acquired absence of left leg above knee; D63.8 Anemia in other chronic diseases classified elsewhere; E87.5 Hyperkalemia; Z68.22 Body mass index [BMI] 22.0-22.9, adult
CPT/HCPCS: 36415; 70450; 71045; 76770; 80048; 80053; 80061; 81001; 82550; 82607; 82728; 82746; 82962; 82977; 83036; 83540; 83550; 83735; 83880; 84100; 84300; 84443; 84550; 85025; 86140; 89050; 93005; 93306; 96374; 99285; J1815